=== PATIENT | male | born 1985 | race Two or more races ===

== ENCOUNTER 2020-02-29 13:16 | Emergency (ER) | payer SELFPAY ==
[~2020-02-29] VITALS: Ht 165.1 cm; Wt 56.7 kg
[2020-02-29 13:42] VITALS: BP 125/74
[2020-02-29 14:01] LABS: Urine Bacteria NONE SEEN /hpf (None Seen); Urine Blood 2+ /uL (Negative); Urine Mucus FEW (None Seen); Urine WBC 2903 /hpf (0 - 3)
== END 2020-02-29 15:33 | disposition left against medical advice (07) ==
LOC: ER 13:16
DX: N50.89 Other specified disorders of the male genital organs (principal); R50.9 Fever, unspecified; Z53.21 Procedure and treatment not carried out due to patient leaving prior to being seen by health care provider
CPT/HCPCS: 81001

== ENCOUNTER 2021-04-26 17:06 | Emergency (ER) | payer MEDICAID | END 2021-04-26 18:55 | disposition left against medical advice (07) | LOC: ER 17:06 | DX: R10.9 Unspecified abdominal pain (principal); Z53.21 Procedure and treatment not carried out due to patient leaving prior to being seen by health care provider ==